=== PATIENT | female | born 1990 | race American Indian/Alaskan Native ===

== ENCOUNTER 2017-05-31 21:29 | Observation (INO) | payer MEDICAID ==
[2017-05-31 21:58] VITALS: BMI 43.2
[2017-05-31] MEDS ORDERED: Sodium Chloride 0.9% 1,000 ML IV SCH (22:45)
--- NOTE | 2017-05-31 22:45 | ED PDOC ---
Arrival/HPI - General Chief Complaint: Weakness/Neurological Deficit Time Seen by Provider: 05/31/17 22:26 Historian: Patient, Parent - Critical Care Critical Care Minutes: 30 minutes - History of Present Illness Narrative History of Present Illness (Text): 05/31/17 22:25 26 year old female, with no significant past medical history, presents to the emergency department accompanied by mother complaining numbness and tingling to tongue and left side face which began yesterday associated with some paresthesia to the left side of the face that began earlier today. On arrival to the emergency department patient in triage was talking normally with no history of focal weakness. When viewing patient, she began to experience signs of difficulty speaking clearly and crying with slow mentation. As per mother, Patient stated she was smoking marijuana and drinking alcohol last night. During physical exam, began experiencing new onset of expressive aphasia. Code stroke was called. Patient denies any fever, chills, chest pain, shortness of breath, nausea, vomiting, diarrhea, urinary symptoms, back pain, neck pain, headache, dizziness, or any other complaints. PMD: Dr. Stefano Esquivel Time/Duration: 24 hours Symptom Onset: Gradual Symptom Course: Unchanged Activities at Onset: Light Context: Home Past Medical History - Provider Review Nursing Documentation Reviewed: Yes - Infectious Disease Hx of Infectious Diseases: None - Reproductive Menopause: No Family/Social History - Physician Review Nursing Documentation Reviewed: Yes Family/Social History: No Known Family HX Allergies/Home Meds Allergies/Adverse Reactions: Allergies No Known Allergies Allergy (Unverified 05/31/17 22:40) Review of Systems - Physician Review All systems were reviewed & negative as marked: Yes - Review of Systems Constitutional: absent: Fevers, Other (Chills) Respiratory: absent: SOB Cardiovascular: absent: Chest Pain Gastrointestinal: absent: Diarrhea, Nausea, Vomiting Genitourinary Female: absent: Dysuria, Frequency, Hematuria Musculoskeletal: absent: Back Pain, Neck Pain Neurological: Other (numbness and tingling to tongue and left side face. Some paresthesia to the left side of the face). absent: Headache, Dizziness Physical Exam Vital Signs Reviewed: Yes Vital Signs Temp Pulse Resp BP Pulse Ox 06/01/17 02:15 79 18 118/67 99 05/31/17 23:58 77 24 129/73 100 05/31/17 21:58 98.4 F 83 20 177/119 H 99 Temperature: Afebrile Blood Pressure: Hypertensive Pulse: Regular Respiratory Rate: Normal Appearance: Positive for: Well-Appearing, Non-Toxic, Comfortable Pain Distress: None Mental Status: Positive for: Alert and Oriented X 3 - Systems Exam Head: Present: Atraumatic, Normocephalic Pupils: Present: PERRL Extroacular Muscles: Present: EOMI Conjunctiva: Present: Normal Mouth: Present: Moist Mucous Membranes Neck: Present: Normal Range of Motion Respiratory/Chest: Present: Clear to Auscultation, Good Air Exchange. No: Respiratory Distress, Accessory Muscle Use Cardiovascular: Present: Regular Rate and Rhythm, Normal S1, S2. No: Murmurs Abdomen: No: Tenderness, Distention, Peritoneal Signs Back: Present: Normal Inspection Upper Extremity: Present: Normal Inspection, Normal ROM. No: Cyanosis, Edema Lower Extremity: Present: Normal Inspection, Normal ROM. No: Edema Neurological: Present: GCS=15, CN II-XII Intact, Motor Func Grossly Intact, Normal Sensory Function, Normal Cerebellar Funct, Norm Deep Tendon Reflexes, Other (Patient with expressive aphasia when I saw her.) Skin: Present: Warm, Dry, Normal Color. No: Rashes Psychiatric: Present: Alert, Oriented x 3, Normal Insight, Normal Concentration Medical Decision Making ED Course and Treatment: 05/31/17 22:25 Impression: 26 year old female presents complaining numbness and tingling to tongue and left side face which began yesterday associated with some paresthesia to the left side of the face that began earlier today. Differential Diagnosis included but are not limited to: TIA VS CVA VS Hysterical Reaction VS Drug Reaction Plan: -- Labs, Glucose, POC -- CTA Head/neck Code Stroke -- CT Head w/o Contrast Code Stroke -- EKG -- Chest X-ray -- IV Fluids -- Reassess and disposition Progress Notes: 05/31/17 22:25 During physical exam, began experiencing new onset of expressive aphasia. Code stroke was called. 05/31/17 22:[address] Conner who is aware and agrees with the plan. Requested CTA of head and neck. 05/31/17 23:00 On return from getting her CT done, patient was speaking clearly and back to her normal baseline. 05/31/17 23:15 EKG shows NSR at [address]/T Changes. Interpreted by me. EXAM: CT Head Without Intravenous Contrast Dictated and Authenticated by: Starla Kendall MD 05/31/2017 11:17 PM IMPRESSION: Mild sinus disease. EXAM: CT Angiography Head With Intravenous Contrast Dictated and Authenticated by: Starla Kendall MD 06/01/2017 12:04 AM IMPRESSION: Normal head CTA. EXAM: CT Angiography Neck With Intravenous Contrast Dictated and Authenticated by: Starla Kendall MD 06/01/2017 12:04 AM IMPRESSION: No acute findings. CXR Impression: As read by me, Negative. 06/01/17 01:15 Patient is not a candidate for TPA due to resolution of symptoms. 06/01/17 01:39 Case discussed with Supervisor [facility] and Dr. Wells who is aware and agrees with the plan. Patient will be admitted to Hospitalists service. - Lab Interpretations Lab Results: 05/31/17 22:40 05/31/17 22:40 Lab Results 05/31/17 22:40: Alcohol, Quantitative < 10 05/31/17 22:40: Hemoglobin A1c 5.9 05/31/17 22:40: Sodium 142, Potassium 3.6, Chloride 104, Carbon Dioxide 26, Anion Gap 16, BUN 15, Creatinine 1.1, Est GFR ( Amer) > 60, Est GFR (Non- Af Amer) > 60, Random Glucose 131 H, Calcium 9.6, Total Bilirubin 0.3, AST 20, ALT 21, Alkaline Phosphatase 89, Troponin I < 0.01, Total Protein 8.0, Albumin 4.4, Globulin 3.5, Albumin/Globulin Ratio 1.3, Triglycerides 100, Cholesterol 128 L, LDL Cholesterol Direct 59, HDL Cholesterol 45 05/31/17 22:40: PT 13.5 H, INR 1.18 H, APTT 30.7 05/31/17 22:40: WBC 6.4, RBC 4.46, Hgb 10.5 L, Hct 34.4 L, MCV 77.1 L, MCH 23.5 L, MCHC 30.5 L, RDW 14.3, Plt Count 223, MPV 10.2, Gran % 58.2, Lymph % (Auto) 29.8, [place] % (Auto) 9.8 H, Eos % (Auto) 2.0, Baso % (Auto) 0.2, Gran # 3.72, Lymph # (Auto) 1.9, [place] # (Auto) 0.6, Eos # (Auto) 0.1, Baso # (Auto) 0.01 05/31/17 22:37: POC Glucose (mg/dL) 127 H I have reviewed the lab results: Yes - RAD Interpretation Radiology Orders: 05/31/17 22:40 CTA HEAD/NECK CODE STROKE [CT] Stat HEAD W/O (CODE STROKE) [CT] Stat CHEST PORTABLE [RAD] Stat - EKG Interpretation Interpreted by ED Physician: Yes Type: 12 lead EKG - Medication Orders Current Medication Orders: Discontinued Medications Aspirin (Aspirin) 325 mg PO ONCE STA Stop: 06/01/17 00:50 Last Admin: 06/01/17 01:00 Dose: 325 mg Aspirin (Ecotrin) 81 mg PO DAILY [facility] Last Admin: 06/01/17 11:29 Dose: 81 mg Sodium Chloride (Sodium Chloride 0.9%) 1,000 mls @ 100 mls/hr IV .Q10H [facility] Last Admin: 05/31/17 23:04 Dose: 100 mls/hr eMAR Start Stop Document 05/31/17 23:04 CNR (Rec: 05/31/17 23:05 CNR [id number]) Intravenous Solution Start Date 05/31/17 Start Time 23:04 Pantoprazole Sodium (Protonix Ec Tab) 40 mg PO 0600 [facility] Last Admin: 06/01/17 06:14 Dose: 40 mg NIHSS Scale([place]) 2 Time Performed: 23:00 - How Severe is the Stoke Baseline Level of Consciousness: 0=Alert LOC to Questions: 0=Both comments correct LOC to commands: 0=Obeys both correctly Best Gaze: 0=Normal Visual: 0=No visual loss Facial: 0=Normal Motor Arm - Left: 0=No drift Motor Arm - Right: 0=No drift Motor Leg - Left: 0=No drift Motor Leg - Right: 0=No drift Limb Ataxia: 0=Absent Sensory: 0=Normal Best Language: 0=No aphasia Dysarthia: 0=Normal articulation Extinction & Inattention (Neglect): 0=Normal, no object Score: 0 Risk Level: No Stroke Risk rTPA Inclusion/Exclusion - Refusal of Treatment Patient Refused Treatment: No - Inclusion Criteria for Altepase Patient is 18 years or Older: Yes The Clinical Diagnosis of Ischemic Stroke That is Causing a Potentially Disabling Neurological Deficit: No Time of Onset is Well Established to be Less Than 270 Minute Before Treatment Would Begin: No Risk/Benefit Discussed With Patient/Family Member Present: Yes - Exclusion Criteria for Altepase Uncontrolled Hypertension at Time of Treatment (Systolic BP above 185 or Diastolic BP above 110 mmHg): No Active Internal Bleeding: No Known Bleeding Diathesis Including but Not Limited to: Platelets Below 100,000/ mm,PTT Above 40 sec After Heparin Use, Current Use of Oral Anitcoagulant With INR Greater Than 1.7 or PT Greater Than 15 secs: No Evidence of an Intracranial Hemorrhage: No Evidence of Major Acute Infarct With Signs Greater Than 1/3 MCA Territory: No Suspicion of Subarachnoid Hemorrhage on Pretreatment Evaluation Even if CT Head Negative For Hemorrhage: No - Warning to TPA With Conditions Following Conditions Weighed Against Anticipated Benefit: Yes Condition: Rapid Improvement NIHSS Stroke Scale 3 - Date/Time Evaluation Performed Date Performed: 05/31/17 Time Performed: 22:25 - How Severe is the Stroke Level of Consciousness: 0=Alert LOC to Questions: 0=Both comments correct LOC to commands: 0=Obeys both correctly Best Gaze: 0=Normal Visual: 0=No visual loss Facial: 0=Normal Motor Arm - Left: 0=No drift Motor Arm - Right: 0=No drift Motor Leg - Left: 0=No drift Motor Leg - Right: 0=No drift Limb Ataxia: 0=Absent Sensory: 1=Mild to moderate loss Best Language: 1=Mild to moderate aphasia Dysarthia: 1=Mild to moderate slurring Extinction & Inattention (Neglect): 0=Normal, no object Score: 3 - Scribe Statement The provider has reviewed the documentation as recorded by the Carlos Cardoza Provider Scribe Attestation: All medical record entries made by the Carlos were at my direction and personally dictated by me. I have reviewed the chart and agree that the record accurately reflects my personal performance of the history, physical exam, medical decision making, and the department course for this patient. I have also personally directed, reviewed, and agree with the discharge instructions and disposition. Disposition/Present on Arrival - Present on Arrival Any Indicators Present on Arrival: No History of DVT/PE: No History of Uncontrolled Diabetes: No Urinary Catheter: No History of Decub. Ulcer: No History Surgical Site Infection Following: None - Disposition Have Diagnosis and Disposition been Completed?: Yes Diagnosis: TIA (transient ischemic attack) Disposition: HOSPITALIZED Disposition Time: 01:41 Patient Plan: Observation Condition: STABLE
[2017-05-31 22:55] LABS: BASO # 0.01 K/mm3 (0.0-2.0); BASO % 0.2 % (0.0-3.0); EOS # 0.1 (0.0-0.7); GRAN # 3.72 (1.4-6.5); GRAN % 58.2 % (50.0-68.0); HEMOGLOBIN 10.5 g/dL (12.0-16.0); LYMPH # 1.9 (1.2-3.4); LYMPH % 29.8 % (22.0-35.0); MEAN CELL VOLUME 77.1 fl (80.0-105.0); MEAN CORPUSCULAR HEMOGLOBIN 23.5 pg (25.0-35.0); MEAN CORPUSCULAR HGB CONC 30.5 g/dl (31.0-37.0); MEAN PLATELET VOLUME 10.2 fl (7.0-11.0); MONO # 0.6 (0.1-0.6); MONO % 9.8 % (1.0-6.0); RBC 4.46 10^6/uL (3.5-6.1); RED CELL DISTRIBUTION WIDTH 14.3 % (11.5-14.5); WHITE BLOOD COUNT 6.4 10^3/ul (4.5-11.0)
[2017-05-31 23:05] LABS: ALB/GLOB RATIO 1.3 (1.1-1.8); ALBUMIN 4.4 g/dL (3.0-4.8); ALT/SGPT 21 U/L (7-56); AST/SGOT 20 U/L (14-36); BLOOD UREA NITROGEN 15 mg/dL (7-21); CALCIUM 9.6 mg/dL (8.4-10.5); GFR AFRICAN-AMERICAN > 60; GFR NON-AFRICAN AMERICAN > 60; HDL CHOLESTEROL 45 mg/dL (29-60)
[2017-05-31 23:06] LABS: PARTIAL THROMBOPLASTIN TIME 30.7 Seconds (25.1-36.5)
[2017-05-31 23:15] LABS: INR 1.18 (0.93-1.08); LDL CHOLESTEROL 59 mg/dL (0-129); PROTHROMBIN TIME 13.5 SECONDS (9.4-12.5); TROPONIN I < 0.01 ng/mL
--- NOTE | 2017-05-31 23:17 | CT ---
EXAM: CT Head Without Intravenous Contrast EXAM DATE/TIME: 05/31/2017 10:40 PM CLINICAL HISTORY: 26 years old, female; Signs and symptoms; Weakness, facial; Patient HX: Code stroke TECHNIQUE: Axial computed tomography images of the head/brain without intravenous contrast. All CT scans at this facility use one or more dose reduction techniques, viz.: automated exposure control; ma/kV adjustment per patient size (including targeted exams where dose is matched to indication; i.e. head); or iterative reconstruction technique. Coronal and sagittal reformatted images were created and reviewed. COMPARISON: No relevant prior studies available. FINDINGS: No intracranial hemorrhage. No intracranial edema. No evidence of infarct. Mild mucosal thickening of the ethmoid sinuses greater on the right, and of the right maxillary sinus. It could be chronic or alternatively represent mild acute sinusitis. Clinical correlation is recommended. IMPRESSION: Mild sinus disease.
--- NOTE | 2017-06-01 00:04 | CT ---
EXAM: CT Angiography Head With Intravenous Contrast CLINICAL HISTORY: 26 years old, female; Signs and symptoms; Other: CVA TECHNIQUE: Axial computed tomographic angiography images of the head with intravenous contrast using CT angiography protocol. All CT scans at this facility use one or more dose reduction techniques, viz.: automated exposure control; ma/kV adjustment per patient size (including targeted exams where dose is matched to indication; i.e. head); or iterative reconstruction technique. MIP reconstructed images were created and reviewed. Coronal and sagittal reformatted images were created and reviewed. CONTRAST: 70 mL of OMNIPAQUE 350 administered intravenously. COMPARISON: No relevant prior studies available. FINDINGS: Basilar artery: Unremarkable. No occlusion or significant stenosis. No aneurysm. Right posterior cerebral artery: Unremarkable. No occlusion or significant stenosis. No aneurysm. Left posterior cerebral artery: Unremarkable. No occlusion or significant stenosis. No aneurysm. Right internal carotid artery: No acute findings. Intracranial segment is patent with no significant stenosis. No aneurysm. Right anterior cerebral artery: Unremarkable. No occlusion or significant stenosis. No aneurysm. Right middle cerebral artery: Unremarkable. No occlusion or significant stenosis. No aneurysm. Left internal carotid artery: No acute findings. Intracranial segment is patent with no significant stenosis. No aneurysm. Left anterior cerebral artery: Unremarkable. No occlusion or significant stenosis. No aneurysm. Left middle cerebral artery: Unremarkable. No occlusion or significant stenosis. No aneurysm. IMPRESSION: Normal head CTA. EXAM: CT Angiography Neck With Intravenous Contrast EXAM DATE/TIME: 05/31/2017 10:40 PM CLINICAL HISTORY: 26 years old, female; Signs and symptoms; Other: CVA TECHNIQUE: Axial computed tomographic angiography images of the neck with intravenous contrast using CT angiography protocol. All CT scans at this facility use one or more dose reduction techniques, viz.: automated exposure control; ma/kV adjustment per patient size (including targeted exams where dose is matched to indication; i.e. head); or iterative reconstruction technique. MIP reconstructed images were created and reviewed. Coronal and sagittal reformatted images were created and reviewed. CONTRAST: 70 mL of OMNIPAQUE 350 administered intravenously. COMPARISON: CT - HEAD W/O (CODE STROKE) 2017-05-31 22:46 FINDINGS: The common carotid and internal carotid arteries are normal bilaterally without evidence of occlusion or dissection. The vertebral arteries are normal bilaterally without evidence of occlusion or dissection. The airway is patent. The soft tissues are normal. The osseous structures are normal. IMPRESSION: No acute findings.
[2017-06-01 03:02] LABS: BARBITURATES, UR NEGATIVE (NEGATIVE); BENZODIAZEPINES, UR NEGATIVE (NEGATIVE); OPIATES, UR NEGATIVE (NEGATIVE); PHENCYCLIDINE, UR NEGATIVE (NEGATIVE)
--- NOTE | 2017-06-01 05:04 | CP.PCM.HP ---
<Jose Miguel De La Rosa - Last Filed: 06/01/17 05:17> History of Present Illness - History of Present Illness History of Present Illness: Medicine H&P: Dr. Wells Chief Complaint: Numbness tingling tongue and face HPI: 26 year old female with no past medical history presents with 2 day duration of numbness tingling in face and tongue. Patient was smoking marijuana and drinking alcohol the night before. She denies loss of sensation, loss of muscle function, loss of vision, blurry vision, or loss of bowel and bladder. Patient does state that she is having some dysarthria. Patient denies trouble swallowing. Review of Systems: 12 point ROS obtained and negative except as per HPI Surgical History: Denies Medical History: Obesity Allergies: NKDA Social History: Marijuana, alcohol; denies tobacco Home Meds: Per MAR, there are none Family History: Hypertension PMD: Dr. Esquivel Present on Admission - Present on Admission Any Indicators Present on Admission: No Past Patient History - Infectious Disease Hx of Infectious Diseases: None - Past Social History Smoking Status: Never Smoked - CARDIAC Hx Cardiac Disorders: No - PULMONARY Hx Respiratory Disorders: No - NEUROLOGICAL Hx Neurological Disorder: No - RENAL Hx Chronic Kidney Disease: No - ENDOCRINE/METABOLIC Hx Endocrine Disorders: No - HEMATOLOGICAL/ONCOLOGICAL Hx Blood Disorders: No - INTEGUMENTARY Hx Dermatological Problems: No - MUSCULOSKELETAL/RHEUMATOLOGICAL Hx Musculoskeletal Disorders: No Hx Falls: No - GASTROINTESTINAL Hx Gastrointestinal Disorders: No - GENITOURINARY/GYNECOLOGICAL Hx Genitourinary Disorders: No - PSYCHIATRIC Hx Psychophysiologic Disorder: No Hx Substance Use: No - SURGICAL HISTORY Hx Surgeries: Yes Hx Cholecystectomy: Yes Meds Home Medications: Home Medication List Medication Instructions Recorded Confirmed Type Docusate [Colace] 100 mg PO DAILY PRN #30 cap 06/01/17 Rx Ferrous Sulfate [Feosol] 324 mg PO TID #90 ect 06/01/17 Rx Allergies/Adverse Reactions: Allergies Allergy/AdvReac Type Severity Reaction Status Date / Time No Known Allergies Allergy Unverified 05/31/17 22:40 Physical Exam - Constitutional Appears: Well - Head Exam Head Exam: ATRAUMATIC, NORMAL INSPECTION, NORMOCEPHALIC - Eye Exam Eye Exam: EOMI, Normal appearance, PERRL Pupil Exam: NORMAL ACCOMODATION, PERRL - ENT Exam ENT Exam: Mucous Membranes Moist, Normal Exam - Neck Exam Neck exam: Positive for: Normal Inspection - Respiratory Exam Respiratory Exam: Clear to Auscultation Bilateral, NORMAL BREATHING PATTERN - Cardiovascular Exam Cardiovascular Exam: REGULAR RHYTHM - GI/Abdominal Exam GI & Abdominal Exam: Normal Bowel Sounds, Soft. absent: Tenderness - Extremities Exam Extremities exam: Positive for: normal inspection - Back Exam Back exam: NORMAL INSPECTION - Neurological Exam Neurological exam: Alert, CN II-XII Intact, Normal Gait, Oriented x3, Reflexes Normal Additional comments: Muscle strength 5/5 upper and lower extremities bilaterally; sensation in tact bilaterally upper and lower extremities; EOMI; DTR intact; CN II-XII intact - Psychiatric Exam Psychiatric exam: Normal Affect, Normal Mood - Skin Skin Exam: Dry, Intact, Normal Color, Warm Results - Vital Signs Recent Vital Signs: Last Vital Signs Temp 97.7 F 06/01/17 03:26 Pulse 80 06/01/17 03:26 Resp 18 06/01/17 03:26 BP 119/76 06/01/17 03:26 Pulse Ox 99 06/01/17 02:15 - Labs Result Diagrams: 05/31/17 22:40 05/31/17 22:40 Labs: Laboratory Results - last 24 hr 06/01/17 02:10 Urine Opiates Screen Negative Urine Methadone Screen Negative Ur Barbiturates Screen Negative Ur Phencyclidine Scrn Negative Ur Amphetamines Screen Negative U Benzodiazepines Scrn Negative U Oth Cocaine Metabols Negative U Cannabinoids Screen Negative Assessment & Plan - Assessment and Plan (Free Text) Assessment: 26 year old female with no past medical history presenting with questionable neurological deficits. Head and Neck CTA normal, Head CT normal (shows sinusitis). Physical exam normal, but appears to become dysarthric when physicians enter the room. Plan Questionable TIA VS Malingering - ASA in ED - Neurology on consult: Dr. Conner - PT GI/DVT Prophylaxis - Protonix/SCD <Beckie Wells - Last Filed: 06/02/17 03:50> Results - Vital Signs Recent Vital Signs: Last Vital Signs Temp 98.6 F 06/01/17 12:00 Pulse 84 06/01/17 12:00 Resp 19 06/01/17 12:00 BP 187/90 H 06/01/17 12:00 Pulse Ox 97 06/01/17 05:58 - Labs Result Diagrams: 06/01/17 05:00 06/01/17 08:00 Labs: Laboratory Results - last 24 hr 06/01/17 06/01/17 06/01/17 05:00 08:00 08:00 WBC 6.0 RBC 4.31 Hgb 10.1 L Hct 33.1 L MCV 76.8 L MCH 23.4 L MCHC 30.5 L RDW 14.5 Plt Count 224 MPV 10.3 Gran % 54.5 Lymph % (Auto) 26.3 [place] % (Auto) 14.1 H Eos % (Auto) 4.9 Baso % (Auto) 0.2 Gran # 3.26 Lymph # (Auto) 1.6 [place] # (Auto) 0.8 H Eos # (Auto) 0.3 Baso # (Auto) 0.01 ESR Sodium 144 Potassium 3.7 Chloride 105 Carbon Dioxide 28 Anion Gap 15 BUN 13 Creatinine 0.8 Est GFR ( Amer) > 60 Est GFR (Non-Af Amer) > 60 Random Glucose 108 Calcium 8.9 Iron TIBC % Saturation Ferritin Total Bilirubin 0.3 AST 25 ALT 21 Alkaline Phosphatase 83 C-React Prot High Sens > 15.00 H Total Protein 7.5 Albumin 4.1 Globulin 3.4 Albumin/Globulin Ratio 1.2 Vitamin B12 25-OH Vitamin D Total TSH 3rd Generation 2.19 06/01/17 06/01/17 06/01/17 08:00 08:00 08:00 WBC RBC Hgb Hct MCV MCH MCHC RDW Plt Count MPV Gran % Lymph % (Auto) [place] % (Auto) Eos % (Auto) Baso % (Auto) Gran # Lymph # (Auto) [place] # (Auto) Eos # (Auto) Baso # (Auto) ESR 60 H Sodium Potassium Chloride Carbon Dioxide Anion Gap BUN Creatinine Est GFR ( Amer) Est GFR (Non-Af Amer) Random Glucose Calcium Iron TIBC % Saturation Ferritin Total Bilirubin AST ALT Alkaline Phosphatase C-React Prot High Sens Total Protein Albumin Globulin Albumin/Globulin Ratio Vitamin B12 276 25-OH Vitamin D Total < 12.8 L TSH 3rd Generation 06/01/17 06/01/17 08:00 08:00 WBC RBC Hgb Hct MCV MCH MCHC RDW Plt Count MPV Gran % Lymph % (Auto) [place] % (Auto) Eos % (Auto) Baso % (Auto) Gran # Lymph # (Auto) [place] # (Auto) Eos # (Auto) Baso # (Auto) ESR Sodium Potassium Chloride Carbon Dioxide Anion Gap BUN Creatinine Est GFR ( Amer) Est GFR (Non-Af Amer) Random Glucose Calcium Iron 29 L TIBC 337 % Saturation 9 L Ferritin 15.2 Total Bilirubin AST ALT Alkaline Phosphatase C-React Prot High Sens Total Protein Albumin Globulin Albumin/Globulin Ratio Vitamin B12 25-OH Vitamin D Total TSH 3rd Generation Attending/Attestation - Attestation I have personally seen and examined this patient.: Yes I have fully participated in the care of the patient.: Yes I have reviewed all pertinent clinical information: Yes Notes (Text): 06/02/17 03:48 Patient was seen when she was in the ER. Medical record was reviewed. Agree with history , physical examination, assessment and plan.
[2017-06-01 05:58] VITALS: O2SAT 97
[2017-06-01] MEDS ORDERED: Pantoprazole 40 mg EC Tab PO SCH (06:00)
[2017-06-01 08:26] LABS: BASO # 0.01 K/mm3 (0.0-2.0); BASO % 0.2 % (0.0-3.0); EOS # 0.3 (0.0-0.7); EOS % 4.9 % (1.5-5.0); GRAN # 3.26 (1.4-6.5); GRAN % 54.5 % (50.0-68.0); HEMOGLOBIN 10.1 g/dL (12.0-16.0); LYMPH # 1.6 (1.2-3.4); LYMPH % 26.3 % (22.0-35.0); MEAN CELL VOLUME 76.8 fl (80.0-105.0); MEAN CORPUSCULAR HEMOGLOBIN 23.4 pg (25.0-35.0); MEAN CORPUSCULAR HGB CONC 30.5 g/dl (31.0-37.0); MEAN PLATELET VOLUME 10.3 fl (7.0-11.0); MONO # 0.8 (0.1-0.6); MONO % 14.1 % (1.0-6.0); RBC 4.31 10^6/uL (3.5-6.1); RED CELL DISTRIBUTION WIDTH 14.5 % (11.5-14.5)
[2017-06-01 09:08] LABS: ALB/GLOB RATIO 1.2 (1.1-1.8); ALBUMIN 4.1 g/dL (3.0-4.8); ALT/SGPT 21 U/L (7-56); AST/SGOT 25 U/L (14-36); BLOOD UREA NITROGEN 13 mg/dL (7-21); CALCIUM 8.9 mg/dL (8.4-10.5); GFR AFRICAN-AMERICAN > 60; GFR NON-AFRICAN AMERICAN > 60
--- NOTE | 2017-06-01 09:21 | RAD ---
HISTORY: Code Stroke COMPARISON: Comparison chest 08/11/2014. FINDINGS: LUNGS: Poor inspiration with low lung volumes, crowded bronchovascular markings. PLEURA: No active pulmonary disease. No significant pleural effusion identified, no pneumothorax apparent. CARDIOVASCULAR: Normal. OSSEOUS STRUCTURES: No significant abnormalities. VISUALIZED UPPER ABDOMEN: Normal. OTHER FINDINGS: None. IMPRESSION: Poor inspiration with low lung volumes, crowded bronchovascular markings.
[2017-06-01 09:35] LABS: IRON 29 ug/dL (45-180)
[2017-06-01 09:44] LABS: % IRON SATURATION 9 % (20-55); TOTAL IRON BINDING CAPACITY 337 ug/dL (265-497)
--- NOTE | 2017-06-01 09:50 | CP.PCM.CON ---
History of Present Illness - History of Present Illness History of Present Illness: Ms. Lewis is a 26 year old female with no past medical history presents with 2 day duration of numbness tingling in face and tongue. Patient was smoking marijuana and drinking alcohol the night before. She denies loss of sensation, loss of muscle function, loss of vision, blurry vision, or loss of bowel and bladder. Patient does state that she is having some dysarthria. Patient denies trouble swallowing. At present she is back to her baseline with no numbness, weakness, lightheadedness. CT scan of the head showed mild sinusitis and CTA is normal. Review of Systems - Review of Systems All systems: reviewed and no additional remarkable complaints except Past Patient History - Infectious Disease Hx of Infectious Diseases: None - Past Social History Smoking Status: Never Smoked - CARDIAC Hx Cardiac Disorders: No - PULMONARY Hx Respiratory Disorders: No - NEUROLOGICAL Hx Neurological Disorder: No - RENAL Hx Chronic Kidney Disease: No - ENDOCRINE/METABOLIC Hx Endocrine Disorders: No - HEMATOLOGICAL/ONCOLOGICAL Hx Blood Disorders: No - INTEGUMENTARY Hx Dermatological Problems: No - MUSCULOSKELETAL/RHEUMATOLOGICAL Hx Musculoskeletal Disorders: No Hx Falls: No - GASTROINTESTINAL Hx Gastrointestinal Disorders: No - GENITOURINARY/GYNECOLOGICAL Hx Genitourinary Disorders: No - PSYCHIATRIC Hx Psychophysiologic Disorder: No Hx Substance Use: No - SURGICAL HISTORY Hx Surgeries: Yes Hx Cholecystectomy: Yes Meds Allergies/Adverse Reactions: Allergies Allergy/AdvReac Type Severity Reaction Status Date / Time No Known Allergies Allergy Unverified 05/31/17 22:40 - Medications Medications: Current Medications Aspirin (Ecotrin) 81 mg PO DAILY [facility] Sodium Chloride (Sodium Chloride 0.9%) 1,000 mls @ 100 mls/hr IV .Q10H [facility] Last Admin: 05/31/17 23:04 Dose: 100 mls/hr Pantoprazole Sodium (Protonix Ec Tab) 40 mg PO 0600 [facility] Last Admin: 06/01/17 06:14 Dose: 40 mg Physical Exam - Constitutional Appears: No Acute Distress - Head Exam Head Exam: NORMAL INSPECTION - Eye Exam Eye Exam: EOMI, Normal appearance, PERRL - ENT Exam ENT Exam: Mucous Membranes Moist, Normal Exam - Neck Exam Neck exam: Positive for: Normal Inspection - Respiratory Exam Respiratory Exam: Clear to Auscultation Bilateral, NORMAL BREATHING PATTERN - Cardiovascular Exam Cardiovascular Exam: +S1, +S2 - GI/Abdominal Exam GI & Abdominal Exam: Normal Bowel Sounds, Soft. absent: Tenderness - Extremities Exam Extremities exam: Positive for: normal inspection - Back Exam Back exam: NORMAL INSPECTION - Neurological Exam Neurological exam: Alert, CN II-XII Intact, Normal Gait, Oriented x3, Reflexes Normal - Expanded Neurological Exam Expanded Patient oriented to: person, place, time Cranial nerves: EOM's Intact: Normal, Facial Palsey w/Forehead Movement: Normal , Facial Sensation: Normal, Gag Reflex: Normal, Tongue Deviation: Normal Ataxia: No Cerebellar Function: Finger to Nose: Normal, Heel to Etienne: Normal, Romberg: Normal Upper motor neuron: Babinski Sign: Normal, Nimesh Neglect: Normal, Pronator Drift : Normal, Sensory Extinction: Normal Sensory exam: Lower Extremity 2 Point Discrimination: Normal, Lower Extremity Light Touch: Normal, Lower Extremity Pin Prick: Normal, Lower Extremity Temperature: Normal, Upper Extremity 2 Point Discrimination: Normal, Upper Extremity Light Touch: Normal, Upper Extremity Pin Prick: Normal, Upper Extremity Temperature: Normal Neuro motor strength exam: Left Upper Extremity: 5, Right Upper Extremity: 5, Left Lower Extremity: 5, Right Lower Extremity: 5 Results - Vital Signs Recent Vital Signs: Last Vital Signs Temp 97.9 F 06/01/17 05:58 Pulse 81 06/01/17 05:58 Resp 20 06/01/17 05:58 BP 108/59 L 06/01/17 05:58 Pulse Ox 97 06/01/17 05:58 - Labs Result Diagrams: 06/01/17 05:00 06/01/17 08:00 Labs: Laboratory Results - last 24 hr 06/01/17 06/01/17 06/01/17 02:10 05:00 08:00 WBC 6.0 RBC 4.31 Hgb 10.1 L Hct 33.1 L MCV 76.8 L MCH 23.4 L MCHC 30.5 L RDW 14.5 Plt Count 224 MPV 10.3 Gran % 54.5 Lymph % (Auto) 26.3 [place] % (Auto) 14.1 H Eos % (Auto) 4.9 Baso % (Auto) 0.2 Gran # 3.26 Lymph # (Auto) 1.6 [place] # (Auto) 0.8 H Eos # (Auto) 0.3 Baso # (Auto) 0.01 ESR Sodium 144 Potassium 3.7 Chloride 105 Carbon Dioxide 28 Anion Gap 15 BUN 13 Creatinine 0.8 Est GFR ( Amer) > 60 Est GFR (Non-Af Amer) > 60 Random Glucose 108 Calcium 8.9 Iron TIBC % Saturation Total Bilirubin 0.3 AST 25 ALT 21 Alkaline Phosphatase 83 Total Protein 7.5 Albumin 4.1 Globulin 3.4 Albumin/Globulin Ratio 1.2 TSH 3rd Generation Urine Opiates Screen Negative Urine Methadone Screen Negative Ur Barbiturates Screen Negative Ur Phencyclidine Scrn Negative Ur Amphetamines Screen Negative U Benzodiazepines Scrn Negative U Oth Cocaine Metabols Negative U Cannabinoids Screen Negative 06/01/17 06/01/17 06/01/17 08:00 08:00 08:00 WBC RBC Hgb Hct MCV MCH MCHC RDW Plt Count MPV Gran % Lymph % (Auto) [place] % (Auto) Eos % (Auto) Baso % (Auto) Gran # Lymph # (Auto) [place] # (Auto) Eos # (Auto) Baso # (Auto) ESR 60 H Sodium Potassium Chloride Carbon Dioxide Anion Gap BUN Creatinine Est GFR ( Amer) Est GFR (Non-Af Amer) Random Glucose Calcium Iron 29 L TIBC 337 % Saturation 9 L Total Bilirubin AST ALT Alkaline Phosphatase Total Protein Albumin Globulin Albumin/Globulin Ratio TSH 3rd Generation 2.19 Urine Opiates Screen Urine Methadone Screen Ur Barbiturates Screen Ur Phencyclidine Scrn Ur Amphetamines Screen U Benzodiazepines Scrn U Oth Cocaine Metabols U Cannabinoids Screen Assessment & Plan - Assessment and Plan (Free Text) Assessment: 26 year old female with no past medical history presents with 2 day duration of numbness tingling in face and tongue. Patient was smoking marijuana and drinking alcohol the night before. She denies loss of sensation, loss of muscle function, loss of vision, blurry vision, or loss of bowel and bladder. Patient does state that she is having some dysarthria. Patient denies trouble swallowing. Case discussed with Dr. Conner, recommend the followin. MRI of the brain without contrast , which can be done as an outpatient 2. Echocardiogram, which can be done as an outpatient 3. Referral to a hematology due to low iron level. 4. Recommend to follow up Dr. Conner at [address] [facility]. [address] [place] [address]. 5. May discharge patient, if stable. Thank you.
--- NOTE | 2017-06-01 12:26 | CP.PCM.DIS ---
<Nataliia Ornelas - Last Filed: 06/01/17 12:34> Provider - Provider Date of Admission: 06/01/17 01:41 Attending physician: Margarito Mc MD Primary care physician: Angie Esquivel DO Consults: Neuro: Dr. Conner Time Spent in preparation of Discharge (in minutes): 25 Hospital Course - Lab Results Lab Results: Most Recent Lab Values WBC 6.0 10^3/ul (4.5-11.0) 06/01/17 05:00 RBC 4.31 10^6/uL (3.5-6.1) 06/01/17 05:00 Hgb 10.1 g/dL (12.0-16.0) L 06/01/17 05:00 Hct 33.1 % (36.0-48.0) L 06/01/17 05:00 MCV 76.8 fl (80.0-105.0) L 06/01/17 05:00 MCH 23.4 pg (25.0-35.0) L 06/01/17 05:00 MCHC 30.5 g/dl (31.0-37.0) L 06/01/17 05:00 RDW 14.5 % (11.5-14.5) 06/01/17 05:00 Plt Count 224 10^3/uL (120.0-450.0) 06/01/17 05:00 MPV 10.3 fl (7.0-11.0) 06/01/17 05:00 Gran % 54.5 % (50.0-68.0) 06/01/17 05:00 Lymph % (Auto) 26.3 % (22.0-35.0) 06/01/17 05:00 [place] % (Auto) 14.1 % (1.0-6.0) H 06/01/17 05:00 Eos % (Auto) 4.9 % (1.5-5.0) 06/01/17 05:00 Baso % (Auto) 0.2 % (0.0-3.0) 06/01/17 05:00 Gran # 3.26 (1.4-6.5) 06/01/17 05:00 Lymph # (Auto) 1.6 (1.2-3.4) 06/01/17 05:00 [place] # (Auto) 0.8 (0.1-0.6) H 06/01/17 05:00 Eos # (Auto) 0.3 (0.0-0.7) 06/01/17 05:00 Baso # (Auto) 0.01 K/mm3 (0.0-2.0) 06/01/17 05:00 ESR 60 mm/hr (0.0-20.0) H 06/01/17 08:00 PT 13.5 SECONDS (9.4-12.5) H 05/31/17 22:40 INR 1.18 (0.93-1.08) H 05/31/17 22:40 APTT 30.7 Seconds (25.1-36.5) 05/31/17 22:40 Sodium 144 mmol/L (132-148) 06/01/17 08:00 Potassium 3.7 mmol/L (3.6-5.0) 06/01/17 08:00 Chloride 105 mmol/L (98-107) 06/01/17 08:00 Carbon Dioxide 28 mmol/L (21-33) 06/01/17 08:00 Anion Gap 15 (10-20) 06/01/17 08:00 BUN 13 mg/dL (7-21) 06/01/17 08:00 Creatinine 0.8 mg/dl (0.7-1.2) 06/01/17 08:00 Est GFR ( Amer) > 60 06/01/17 08:00 Est GFR (Non-Af Amer) > 60 06/01/17 08:00 POC Glucose (mg/dL) 127 mg/dL (65-110) H 05/31/17 22:37 Random Glucose 108 mg/dL (70-110) 06/01/17 08:00 Hemoglobin A1c 5.9 % (4.2-6.5) 05/31/17 22:40 Calcium 8.9 mg/dL (8.4-10.5) 06/01/17 08:00 Iron 29 ug/dL (45-180) L 06/01/17 08:00 TIBC 337 ug/dL (265-497) 06/01/17 08:00 % Saturation 9 % (20-55) L 06/01/17 08:00 Total Bilirubin 0.3 mg/dL (0.2-1.3) 06/01/17 08:00 AST 25 U/L (14-36) 06/01/17 08:00 ALT 21 U/L (7-56) 06/01/17 08:00 Alkaline Phosphatase 83 U/L (38-126) 06/01/17 08:00 Troponin I < 0.01 ng/mL 05/31/17 22:40 Total Protein 7.5 g/dL (5.8-8.3) 06/01/17 08:00 Albumin 4.1 g/dL (3.0-4.8) 06/01/17 08:00 Globulin 3.4 gm/dL 06/01/17 08:00 Albumin/Globulin Ratio 1.2 (1.1-1.8) 06/01/17 08:00 Triglycerides 100 mg/dL (35-160) 05/31/17 22:40 Cholesterol 128 mg/dL (130-200) L 05/31/17 22:40 LDL Cholesterol Direct 59 mg/dL (0-129) 05/31/17 22:40 HDL Cholesterol 45 mg/dL (29-60) 05/31/17 22:40 TSH 3rd Generation 2.19 mIU/mL (0.46-4.68) 06/01/17 08:00 Urine Opiates Screen Negative (NEGATIVE) 06/01/17 02:10 Urine Methadone Screen Negative (NEGATIVE) 06/01/17 02:10 Ur Barbiturates Screen Negative (NEGATIVE) 06/01/17 02:10 Ur Phencyclidine Scrn Negative (NEGATIVE) 06/01/17 02:10 Ur Amphetamines Screen Negative (NEGATIVE) 06/01/17 02:10 U Benzodiazepines Scrn Negative (NEGATIVE) 06/01/17 02:10 U Oth Cocaine Metabols Negative (NEGATIVE) 06/01/17 02:10 U Cannabinoids Screen Negative (NEGATIVE) 06/01/17 02:10 Alcohol, Quantitative < 10 mg/dL (0-10) 05/31/17 22:40 - Hospital Course Hospital Course: This is a 26yo female with no past medical history who was admitted for 2 days of L sided facial/tongue numbness/tingling with some dysarthria. Patient admitted to drinking alcohol and smoking marijuana when symptoms started. Code stroke was called. Head CT, CTA head/neck and Brain MRI were negative for CVA or TIA. However, the brain MRI showed Chiari I malformation which would not cause her symptoms. I discussed findings with radiologist, Dr. Christianson. It is recommended that patient have a non-emergent MRI of cervical/thoracic spine. Neurology was consulted and reports that these symptoms are not likely from any acute CVA/TIA. Patient's symptoms have completely resolved. There are no focal neurologic deficitis noted on exam, They recommend patient follow up in 2 weeks. Patient was also find to be mildly anemic, secondary to iron deficiency. Patient denies any irregular/heavy periods, dark colored or blood in stool. She will be d/c with Feosol and stool softener as needed. It is recommended she follow up with Dr. Esquivel, PMD, for further evaluation. Discussed plan with patient and patient verbalized and agreed with plan. - Date & Time of H&P Date of H&P: 06/01/17 Time of H&P: 05:00 Discharge Exam - Head Exam Head Exam: NORMAL INSPECTION - Eye Exam Eye Exam: Normal appearance, PERRL Pupil Exam: NORMAL ACCOMODATION, PERRL - ENT Exam ENT Exam: Mucous Membranes Moist - Respiratory Exam Respiratory Exam: Clear to PA & Lateral, NORMAL BREATHING PATTERN, UNREMARKABLE. absent: Rales, Rhonchi, Wheezes - Cardiovascular Exam Cardiovascular Exam: REGULAR RHYTHM, +S1, +S2. absent: Gallop, Rubs, Systolic Murmur - GI/Abdominal Exam GI & Abdominal Exam: Normal Bowel Sounds, Soft, Unremarkable. absent: Mass, Rebound, Rigid - Extremities Exam Extremities exam: normal inspection - Neurological Exam Neurological exam: Alert, CN II-XII Intact, Normal Gait, Oriented x3 Additional comments: No focal neurological deficits noted. Sensation is intact. - Psychiatric Exam Psychiatric exam: Normal Affect, Normal Mood - Skin Skin Exam: Dry, Intact, Normal Color, Warm Discharge Plan - Discharge Medications Prescriptions: Docusate [Colace] 100 mg PO DAILY PRN #30 cap PRN Reason: Constipation Ferrous Sulfate [Feosol] 324 mg PO TID #90 ect - Follow Up Plan Condition: STABLE Disposition: HOME/ ROUTINE Instructions: Chiari Malformation Additional Instructions: 1. Please follow up with PMD, Dr. Esquivel for low iron. 2. Take Iron pills 3 times per day. Use stool softener because Iron can make you constipated 3. Please follow up with Neurology, Dr. Conner as outpatient in 2 weeks 4. Recommended non-emergent MRI of cervical and thoracic spine as outpatient for Chiari I malformation seen on MRI. Referrals: Angie Esquivel DO [Primary Care Provider] - Augusta Conner MD [Staff Provider] - <Margarito Mc - Last Filed: 06/01/17 17:15> Provider - Provider Date of Admission: 06/01/17 01:41 Attending physician: Margarito Mc MD Primary care physician: Angie Esquivel DO Hospital Course - Lab Results Lab Results: Most Recent Lab Values WBC 6.0 10^3/ul (4.5-11.0) 06/01/17 05:00 RBC 4.31 10^6/uL (3.5-6.1) 06/01/17 05:00 Hgb 10.1 g/dL (12.0-16.0) L 06/01/17 05:00 Hct 33.1 % (36.0-48.0) L 06/01/17 05:00 MCV 76.8 fl (80.0-105.0) L 06/01/17 05:00 MCH 23.4 pg (25.0-35.0) L 06/01/17 05:00 MCHC 30.5 g/dl (31.0-37.0) L 06/01/17 05:00 RDW 14.5 % (11.5-14.5) 06/01/17 05:00 Plt Count 224 10^3/uL (120.0-450.0) 06/01/17 05:00 MPV 10.3 fl (7.0-11.0) 06/01/17 05:00 Gran % 54.5 % (50.0-68.0) 06/01/17 05:00 Lymph % (Auto) 26.3 % (22.0-35.0) 06/01/17 05:00 [place] % (Auto) 14.1 % (1.0-6.0) H 06/01/17 05:00 Eos % (Auto) 4.9 % (1.5-5.0) 06/01/17 05:00 Baso % (Auto) 0.2 % (0.0-3.0) 06/01/17 05:00 Gran # 3.26 (1.4-6.5) 06/01/17 05:00 Lymph # (Auto) 1.6 (1.2-3.4) 06/01/17 05:00 [place] # (Auto) 0.8 (0.1-0.6) H 06/01/17 05:00 Eos # (Auto) 0.3 (0.0-0.7) 06/01/17 05:00 Baso # (Auto) 0.01 K/mm3 (0.0-2.0) 06/01/17 05:00 ESR 60 mm/hr (0.0-20.0) H 06/01/17 08:00 PT 13.5 SECONDS (9.4-12.5) H 05/31/17 22:40 INR 1.18 (0.93-1.08) H 05/31/17 22:40 APTT 30.7 Seconds (25.1-36.5) 05/31/17 22:40 Sodium 144 mmol/L (132-148) 06/01/17 08:00 Potassium 3.7 mmol/L (3.6-5.0) 06/01/17 08:00 Chloride 105 mmol/L (98-107) 06/01/17 08:00 Carbon Dioxide 28 mmol/L (21-33) 06/01/17 08:00 Anion Gap 15 (10-20) 06/01/17 08:00 BUN 13 mg/dL (7-21) 06/01/17 08:00 Creatinine 0.8 mg/dl (0.7-1.2) 06/01/17 08:00 Est GFR ( Amer) > 60 06/01/17 08:00 Est GFR (Non-Af Amer) > 60 06/01/17 08:00 POC Glucose (mg/dL) 127 mg/dL (65-110) H 05/31/17 22:37 Random Glucose 108 mg/dL (70-110) 06/01/17 08:00 Hemoglobin A1c 5.9 % (4.2-6.5) 05/31/17 22:40 Calcium 8.9 mg/dL (8.4-10.5) 06/01/17 08:00 Iron 29 ug/dL (45-180) L 06/01/17 08:00 TIBC 337 ug/dL (265-497) 06/01/17 08:00 % Saturation 9 % (20-55) L 06/01/17 08:00 Total Bilirubin 0.3 mg/dL (0.2-1.3) 06/01/17 08:00 AST 25 U/L (14-36) 06/01/17 08:00 ALT 21 U/L (7-56) 06/01/17 08:00 Alkaline Phosphatase 83 U/L (38-126) 06/01/17 08:00 Troponin I < 0.01 ng/mL 05/31/17 22:40 Total Protein 7.5 g/dL (5.8-8.3) 06/01/17 08:00 Albumin 4.1 g/dL (3.0-4.8) 06/01/17 08:00 Globulin 3.4 gm/dL 06/01/17 08:00 Albumin/Globulin Ratio 1.2 (1.1-1.8) 06/01/17 08:00 Triglycerides 100 mg/dL (35-160) 05/31/17 22:40 Cholesterol 128 mg/dL (130-200) L 05/31/17 22:40 LDL Cholesterol Direct 59 mg/dL (0-129) 05/31/17 22:40 HDL Cholesterol 45 mg/dL (29-60) 05/31/17 22:40 TSH 3rd Generation 2.19 mIU/mL (0.46-4.68) 06/01/17 08:00 Urine Opiates Screen Negative (NEGATIVE) 06/01/17 02:10 Urine Methadone Screen Negative (NEGATIVE) 06/01/17 02:10 Ur Barbiturates Screen Negative (NEGATIVE) 06/01/17 02:10 Ur Phencyclidine Scrn Negative (NEGATIVE) 06/01/17 02:10 Ur Amphetamines Screen Negative (NEGATIVE) 06/01/17 02:10 U Benzodiazepines Scrn Negative (NEGATIVE) 06/01/17 02:10 U Oth Cocaine Metabols Negative (NEGATIVE) 06/01/17 02:10 U Cannabinoids Screen Negative (NEGATIVE) 06/01/17 02:10 Alcohol, Quantitative < 10 mg/dL (0-10) 05/31/17 22:40 Attending/Attestation - Attestation I have personally seen and examined this patient.: Yes I have fully participated in the care of the patient.: Yes I have reviewed all pertinent clinical information, including history, physical exam and plan: Yes Notes (Text): 06/01/17 17:13 Medical record note made by the resident after discussion with my direction and input after the patient was personally seen and examined by me. I have reviewed the chart and agree that the record accurately reflects by personal performance of the history, physical exam, data review, and medical decision-making, in the course for the patient. I have also personally directed the plan of care. 26yo female with no past medical history who was admitted for 2 days of L sided facial/tongue numbness/tingling with some dysarthria. Code stroke was called. Head CT, CTA head/neck and Brain MRI were negative for CVA or TIA. However, the brain MRI showed Chiari I malformation which is not causing any symptoms. Patient will need non-emergent MRI of cervical/thoracic spine.This was discussed in detail with her.Patient Neuro examination is normal.She is ambulatory, tolerating diet.There is no Neuro deficit at the time of discharge. Management plan was discussed in detail with patient. Education was provided.
--- NOTE | 2017-06-01 12:43 | MRI ---
PROCEDURE: MRI brain dated 06/01/2017. HISTORY: TIA COMPARISON: Comparison made with prior CT scan and CTA brain 05/31/2017. TECHNIQUE: Multiplanar, multisequence MR images of the brain were obtained without intravenous contrast enhancement. FINDINGS: HEMORRHAGE: No acute parenchymal, subarachnoid or extra-axial hemorrhage. No evidence of hemosiderin deposition seen on gradient echo weighted sequence. DWI: No evidence of an acute or early subacute infarction seen on diffusion imaging. BRAIN PARENCHYMA: No evidence of parenchymal nor extra-axial mass or collection seen on this noncontrast study. There are no focal areas of abnormal signal seen within the substance of the brain. Cerebellar tonsils are low lying consistent with Chiari 1 malformation VENTRICLES: No obstructive hydrocephalus. CRANIUM: No calvarial abnormalities. ORBITS: Grossly unremarkable. PARANASAL SINUSES/MASTOIDS: Mild mucosal thickening seen within the maxillary and ethmoid air complex. Minimal mucosal thickening within the sphenoid sinus.. Prominent adenoids not unusual in this age group VASCULAR SYSTEM: Visualized major vascular flow voids at skull base patent. OTHER FINDINGS: None. IMPRESSION: No evidence of acute intracranial hemorrhage or infarct. . Low lying cerebellar tonsils consistent with Chiari 1 malformation as detailed above. Recommend follow-up nonemergent MRI of the cervical and thoracic spine to exclude the possibility of a syrinx cavity. Findings discussed with Dr. Alvarado at approximately 12:15 p.m. with written down and read back verification
[2017-06-01 13:07] VITALS: BP 187/90; PULSE 84; RESP 19; TEMP 98.6
--- NOTE | 2017-06-01 21:42 | CARD ---
APPROVED REPORT EKG Measurement Heart [id number] <Conclusion> Normal sinus rhythm Moderate voltage criteria for LVH, may be normal variant Borderline ECG
== END 2017-06-01 13:47 | disposition home or self-care (01) ==
LOC: ED 21:29 → ERH 06-01 01:41 → 2RSO 06-01 02:44
PROVIDERS: ADMIT Internal Medicine; ATTEND Internal Medicine
DX: R47.1 Dysarthria and anarthria (principal); R47.01 Aphasia; G93.5 Compression of brain; D50.9 Iron deficiency anemia, unspecified; F12.90 Cannabis use, unspecified, uncomplicated; E66.9 Obesity, unspecified; Z68.41 Body mass index [BMI] 40.0-44.9, adult; Z90.49 Acquired absence of other specified parts of digestive tract
CPT/HCPCS: 36415; 70450; 70496; 70498; 70551; 71045; 80053; 80061; 80320; 80324; 80345; 80346; 80349; 80353; 80358; 80361; 81240; 81241; 82306; 82607; 82728; 82948; 83036; 83090; 83540; 83550; 83992; 84443; 84484; 85025; 85610; 85613; 85651; 85730; 86140; 92523; 93005; 99285; G0378; G8999; G9186; J7040; Q9967